=== PATIENT | female | born 1980 | race Caucasian/White ===

== ENCOUNTER → 2017-03-09 | Outpatient (CLI) | payer OTHER ==
[~2017-03-09] MED LIST: Z.0.BCPILL PO
[2017-03-09 14:12] LABS: BILIRUBIN, URINE NEG (NEG); BLOOD, URINE NEG (NEG); GLUCOSE,URINE NEG (NEG); KETONE, URINE 40 mg/dL (NEG); NITRITE,URINE NEG (NEG); PH, URINE 6.5 (5.0-8.5); URINE LEUKOCYTE ESTERASE TRACE (NEG)
[2017-03-09 14:18] LABS: HEMATOCRIT 39.4 % (35.0-46.0); HEMOGLOBIN 13.4 GM/DL (11.6-15.3); MEAN CELL VOLUME 86.3 FL (80.0-100.0); MEAN CORPUSCULAR HEMOGLOBIN 29.3 PG (27.0-34.0); MEAN PLATELET VOLUME 8.6 FL (7.0-11.0); PLATELET COUNT 234 TH/MM3 (150-450); RED BLOOD COUNT 4.57 MIL/MM3 (4.00-5.30); RED CELL DISTRIBUTION WIDTH 12.9 % (11.6-17.2); WHITE BLOOD COUNT 6.8 TH/MM3 (4.0-11.0)
[2017-03-09 14:18] LABS: URINE COLOR STRAW (YELLW/STRAW)
[2017-03-09 14:19] LABS: WBC, URINE 0-2 /hpf (0-5)
== END ==
LOC: PHPRE 13:29
PROVIDERS: ATTEND Obstetrics & Gynecology
DX: Z01.812 Encounter for preprocedural laboratory examination (principal); N92.0 Excessive and frequent menstruation with regular cycle; N94.12 Deep dyspareunia
CPT/HCPCS: 36415; 81001; 85027; 86850; 86900; 86901; 86920

== ENCOUNTER → 2017-03-11 | Day surgery (SDC) | payer OTHER ==
[~2017-03-11] VITALS: Ht 160 cm; Wt 82.2 kg
[~2017-03-11] MED LIST changes: +APREPITANT 40 MG CAP ONE; +CHLORHEXIDINE GLUCONATE 2 % 1 PACK (2 CLOTHS) TOPICAL PRN; +HYDROmorphone HCL PF 0.5 MG/0.5 ML SYRINGE ONE; +KETOROLAC TROMETHAMINE 30 MG/ML (IVP) VIAL ONE; +LACTATED RINGER'S 1000 ML IV PRN; +METHYLENE BLUE 10 MG/ML VIAL OTHER ONE; +METOPROLOL TARTRATE 25 MG TAB PO PRN; +MIDAZOLAM HCL 2 MG/2 ML VIAL ONE; +MORPHINE SULFATE 8 MG/ML INJ ONE; +POVIDONE IODINE 5% (ANTISEPSIS KIT) 4 APPLICATIONS EACH NARE PRN; +PROMETHAZINE INJ 25 MG/ML VIAL ONE; +SODIUM CHLORID 0.9% 500 ML IV PRN; +SODIUM CHLORIDE 0.9% 20 ML VIAL ONE; +SODIUM CHLORIDE 0.9% INJ 50 ML ONE; +VASOPRESSIN 20 UNITS/ML VIAL (IVTITR) ONE; -Z.0.BCPILL PO; +ceFAZolin 1,000 MG/NS 100 ML IV SCH; +ceFAZolin INJ 1,000 MG VIAL ONE; +fentaNYL CITRATE 250 MCG/5 ML AMP ONE; +oxyCODONE/ACETAMINOPHEN 5 MG/325 MG TAB ONE
[2017-03-11 09:12] VITALS: TEMP 98.3
--- NOTE | 2017-03-11 09:37 | PD.OP ---
Operative Report Date of Surgery: Mar 11, 2017 Preoperative Diagnosis: (1) Menorrhagia with regular cycle (2) Deep dyspareunia Postoperative Diagnosis: (1) Menorrhagia with regular cycle (2) Deep dyspareunia Procedure: Total vaginal hysterectomy with right salpingectomy Anesthesia: [facility] Surgeon: Brooklynn Wray [employer] Cashier(s): Carlos Resident Surgeon: n/a Operation and Findings: Indications: This 36 y/o had failure of an Essure sterilization with one tube still patent. She also has progressive menorrhagia and deep pain on intercourse. She was considering tubal ligation and endometrial ablation, but reconsidered requesting vaginal hysterectomy and bilateral salpingectomy if possible. Findings: The patient had a normal-appearing uterus. Tubes and ovaries were normal to laparoscopic view, but the left adnexa was out of instrument reach and relatively fixed so was left in situ. Procedure: The patient had induction of general anesthesia with intubation, then was placed carefully in the low stirrups and prepped. A Velasquez catheter was used to drain the bladder, then fill it with methylene blue stained fluid and clamped off. After draping a weighted vaginal speculum was placed, the cervix was grasped with a single-tooth tenaculum, and circumferential injection of diluted vasopressin produced good blanching. The posterior cul de sac was entered sharply and the incision was continued circumferentially through the vaginal wall around the cervix. The soft tissues were pushed away revealing the uterovesical reflection which was entered sharply. The weighted retractor was replaced with the long one and a straight retractor was used anteriorly. Thus the rectum and bladder were held out of the field throughout the remainder of the case. The uterosacral ligaments were clamped. cut and suture ligatures placed bilaterally, followed by the cardinal ligaments. Two more Jeancarlos suture ligatures of pedicle on each side brought ur to the uteroovarian ligaments. These were doubly clamped bilaterally. Free ties and suture ligatures were then placed after the uterus and passing it off. The right adnexa were identified and the tube grasped. A Jeancarlos clamp across the mesosalpinx was used to form a new pedicle. After excising the tube the pedicle was secured with free tie and suture ligature. The left tube was seen but was fixed and out of reach of the instruments, so was left in situ. A free needle was used to bring the conserved ligature ties from the uterosacral and cardinal ligaments out into the posterior and anterior vaginal fornices respectively. The ties were then tied to their ipsilateral partners for cuff support and hemostasis. The remaining ties were tied across the midline for further support. The cuff was closed from posterior to anterior vertically taking care to get full thickness bites. 0 Vicryl was used throughout the case. The Velasquez was reconnected and the patient was awakened and taken to the recovery room, awake and breathing on her own. Sponge, needle and instrument counts were correct. Brooklynn Wray MD Mar 11, 2017 09:37
[2017-03-11 11:00] VITALS: BP 113/65; PULSE 62; RESP 16; O2SAT 95
== END | disposition home or self-care (01) ==
LOC: PHSDC 06:22
PROVIDERS: ATTEND Obstetrics & Gynecology
DX: N80.0 Endometriosis of uterus (principal); N94.12 Deep dyspareunia; N92.0 Excessive and frequent menstruation with regular cycle
CPT/HCPCS: 01962; 58262; 88307; J0690; J1170; J1885; J2250; J2270; J2550; J3010; J7120; J8501